=== PATIENT | female | born 1940 | race Caucasian/White ===

== ENCOUNTER → 2017-08-28 | Outpatient (CLI) | payer MEDICARE ==
[~2017-08-28] MED LIST: CA C PO; DOCU250C70 PO; DOCU50CA11 PO; HYDR-389 PO; IBUP800T37 PO; LEVO75TA73 PO; LINA290C PO; TER20I SUBQ
== END ==
LOC: LAB 10:30
PROVIDERS: ATTEND Internal Medicine Endocrinology, Diabetes & Metabolism
DX: M80.051D Age-related osteoporosis with current pathological fracture, right femur, subsequent encounter for fracture with routine healing (principal); M81.0 Age-related osteoporosis without current pathological fracture; E03.9 Hypothyroidism, unspecified
CPT/HCPCS: 36415; 82306; 82310; 82374; 82435; 82565; 82947; 84132; 84295; 84443; 84520; 84550

== ENCOUNTER → 2017-09-05 | Outpatient (CLI) | payer MEDICARE ==
--- NOTE | 2017-09-06 13:59 | RADIOLOGY IMAGING REPORT ---
FACILITY: [facility] - [place] PATIENT NAME: ABY KRAFT : [id number] MR: [id number] V: [id number] EXAM DATE: [id number] ORDERING PHYSICIAN: BRENDA REED TECHNOLOGIST: Ciara Martinez PROCEDURE:BILATERAL DIGITAL SCREENING MAMMOGRAM WITH CAD ASSISTED INTERPRETATION & 3D TOMOSYNTHESIS COMPARISON:Mammogram 11/09/2015 & 10/21/2014 INDICATIONS:screening TECHNIQUE: Bilateral MLO & CC views of the right & left breast were obtained. This examination was reviewed with the aid of CAD. FINDINGS: Breast tissue is heterogeneously dense. There is no suspicious mass, calcification or architectural distortion. DIAGNOSTIC CATEGORY 1--NEGATIVE. RECOMMENDATIONS: ROUTINE YEARLY SCREENING MAMMOGRAM AND CLINICAL EVALUATION. IMPRESSION: BIRADS 1: Negative. No mammographic evidence for malignancy. Dictated by: Dennis Porter M.D. on 09/06/2017 at 11:45 Transcribed by: NICOLA on 09/06/2017 at 13:10 Approved by: Dennis Porter M.D. on 09/06/2017 at 13:58 [facility]
== END ==
LOC: MAMO 00:46
PROVIDERS: ATTEND Obstetrics & Gynecology
DX: Z12.31 Encounter for screening mammogram for malignant neoplasm of breast (principal)
CPT/HCPCS: 77063; 77067

== ENCOUNTER → 2017-09-05 | Outpatient (CLI) | payer MEDICARE ==
--- NOTE | 2017-09-05 10:54 | RADIOLOGY IMAGING REPORT ---
FACILITY: [facility] - [place] PATIENT NAME: Liane Moore : 1940 MR: [id number] V: [id number] EXAM DATE: ORDERING PHYSICIAN: PREET WATSON TECHNOLOGIST: [place] [facility] [place] : 1940 Visit/Account:[id number] Date of Sevice: 09/05/2017 BONE MINERAL DENSITY Provided history: Postmenopausal osteoporosis. Additional pertinent history: none COMPARISON STUDIES: 11/16/16 FINDINGS: LUMBAR SPINE: There is prominent scoliosis convex right apex L4 with moderately advanced secondary degenerative scl erosis, artifactually elevating bone mineral content. The pattern is very similar to prior. The bone mineral density (BMD) measured from [ L1-L4 ] correlates with a Z-score of 4.6 and a T-sco re of 2.1 which is normal as defined by the World Health Organization. The corresponding risk of f racture in the lumbar spine is not increased compared with a young adult reference population. This value has decreased by 1.7% since the prior study. More than 5% change is considered significan t. LEFT HIP: Total hip region - Z-score -1.2 , T-score -3.5 Femoral neck - Z-score -1.0 , T-score -3.4. The lower of the two measurements is consistent with osteoporosis as defined by the World Health Org anization. The corresponding risk of fracture in the hip is over 5 times increased compared with a young adult reference population. The TOTAL LEFT HIP density has increased by 2.7% since the prior study. More than 5% change is consi dered significant. IMPRESSION: 1. Lumbar spine: normal, statistically stable from most recent exam. Degenerative sclerosis artifac tually elevates bone mineral content. 2. LEFT Hip: consistent with osteoporosis, statistically stable from most recent exam. LEFT Femoral Neck: Bone Mineral Density is 0.565 g/cm2 FRAX WHO Fracture Risk Assessment Tool link: http://www.ambrosio.ac.uk/FRAX/index.jsp The next DEXA scan of this patient should include the following sites: L1 - L4 and left hip, however consider replacing the lumbar spine with distal nondominant forearm. PLEASE NOTE: 1. The World Health Organization defines low BMD as follows: T-score Normal > -1 Osteopenia -1 to -2.5 Osteoporosis < -2.5 without fractures Established osteoporosis < -2.5 with fractures 2. In general, you may wish to consider: Diagnosis Treatment Follow-up DEXA Normal BMD Prevention 2-3 years Osteopenia Prevention/therapy 1-2 years Osteoporosis Therapy Yearly 3. Fracture risk estimated from the T-score is more accurate for vertebral fractures (often spontaneo us) than for hip fractures. Report Dictated By: Javan Lua MD at 09/05/2017 10:45 AM Report E-Signed By: Javan Lua MD at 09/05/2017 10:50 AM WSN:[id number]
== END ==
LOC: RAD 09:32
PROVIDERS: ATTEND Internal Medicine Endocrinology, Diabetes & Metabolism
DX: M80.051D Age-related osteoporosis with current pathological fracture, right femur, subsequent encounter for fracture with routine healing (principal); Z78.0 Asymptomatic menopausal state
CPT/HCPCS: 77080

== ENCOUNTER → 2018-10-01 | Outpatient (CLI) | payer MEDICARE ==
--- NOTE | 2018-10-02 08:41 | RADIOLOGY IMAGING REPORT ---
FACILITY: [facility] PATIENT NAME: ABY KRAFT : [id number] MR: [id number] V: [id number] EXAM DATE: ORDERING PHYSICIAN: BRENDA REED TECHNOLOGIST: Nieves Lee PROCEDURE:BILATERAL DIGITAL SCREENING MAMMOGRAM WITH CAD ASSISTED INTERPRETATION & 3D TOMOSYNTHESIS COMPARISON:Prior mammograms 09/05/17, 11/09/15, 10/21/14, 10/17/13, 10/16/12, 10/16/11. INDICATIONS:screening FINDINGS: The breasts are heterogeneously dense which can obscure small masses. The parenchymal pattern has remained stable allowing for difference in mammographic technique & patient positioning. DIAGNOSTIC CATEGORY 1--NEGATIVE. RECOMMENDATIONS: ROUTINE MAMMOGRAM AND CLINICAL EVALUATION. IMPRESSION: BIRADS 1: Negative. No significant abnormality is seen. Dictated by: Linette Felix M.D. on 10/01/2018 at 15:54 Transcribed by: ARIAN on 10/01/2018 at 16:00 Approved by: Linette Felix M.D. on 10/02/2018 at 8:40 [facility]
== END ==
LOC: MAMO 01:09
PROVIDERS: ATTEND Obstetrics & Gynecology
DX: Z12.31 Encounter for screening mammogram for malignant neoplasm of breast (principal)
CPT/HCPCS: 77063; 77067